=== PATIENT | female | born 1940 | race Native Hawaiian/Other Pacific Islander ===

== ENCOUNTER → 2016-11-27 | Outpatient (CLI) | payer MEDICARE, OTHER ==
[~2016-11-27] VITALS: Ht 157.5 cm; Wt 50.5 kg
[~2016-11-27] MED LIST: ASPI81TA42 PO; ATOR40TA28 PO; METO-558 PO; MONT10TA21 PO; SACU1TAB7 PO; SLOWK8 PO; VITAD1000 PO
[2016-11-27 09:59] VITALS: BP 149/80
== END | disposition home or self-care (01) ==
LOC: SRCNTR 09:26
PROVIDERS: ATTEND Internal Medicine Clinical Cardiac Electrophysiology
DX: Z45.018 Encounter for adjustment and management of other part of cardiac pacemaker (principal)
CPT/HCPCS: 93288; G0463

== ENCOUNTER 2017-01-04 20:56 | Emergency (ER) | payer MEDICARE, OTHER ==
[~2017-01-04] VITALS: Ht 157.5 cm; Wt 51.4 kg
[2017-01-04] MEDS ORDERED: LIDOCAINE HCL 5% TRANSDERMAL PATCH TP ONE (23:15)
[2017-01-04] MEDS ORDERED: HYDROCODONE/ACETAMINOPHEN 5-325 MG TABLET PO ONE (23:15)
[2017-01-04] MEDS ORDERED: ACYCLOVIR 200 MG CAPSULE PO ONE (23:15)
[2017-01-04] MEDS ORDERED: PredniSONE 20 MG TABLET PO ONE (23:15)
[2017-01-04 23:35] VITALS: BP 138/81
== END 2017-01-04 23:44 | disposition home or self-care (01) ==
LOC: EMS 20:57
DX: B02.9 Zoster without complications (principal); I11.9 Hypertensive heart disease without heart failure; E78.00 Pure hypercholesterolemia, unspecified
CPT/HCPCS: 99284; J7512

== ENCOUNTER → 2017-11-26 | Outpatient (CLI) | payer MEDICARE, OTHER ==
[~2017-11-26] VITALS: Ht 157.5 cm; Wt 50.5 kg
[~2017-11-26] MED LIST changes: -ASPI81TA42 PO; -SLOWK8 PO
[2017-11-26 10:30] VITALS: BP 133/70
== END | disposition home or self-care (01) ==
LOC: SRCNTR 10:08
PROVIDERS: ATTEND Internal Medicine Clinical Cardiac Electrophysiology
DX: Z45.02 Encounter for adjustment and management of automatic implantable cardiac defibrillator (principal); E78.00 Pure hypercholesterolemia, unspecified; I10 Essential (primary) hypertension
CPT/HCPCS: G0463

== ENCOUNTER → 2020-06-14 | Outpatient (CLI) | payer MEDICARE, OTHER ==
[~2020-06-14] VITALS: Ht 152.4 cm; Wt 56.7 kg
[~2020-06-14] MED LIST changes: +CHOL100018 PO; +GABA-1216 PO; +MONT-35 PO; -MONT10TA21 PO; +PANT-31 PO; -VITAD1000 PO
[2020-06-14 10:23] VITALS: BP 141/72
== END | disposition home or self-care (01) ==
LOC: SRCNTR 09:36
PROVIDERS: ATTEND Internal Medicine Clinical Cardiac Electrophysiology
DX: Z45.02 Encounter for adjustment and management of automatic implantable cardiac defibrillator (principal)
CPT/HCPCS: 93289; G0463

== ENCOUNTER → 2020-08-10 | Outpatient (CLI) | payer MEDICARE, OTHER | END | disposition home or self-care (01) | LOC: RADPV 09:38 | PROVIDERS: ATTEND Internal Medicine | DX: M81.8 Other osteoporosis without current pathological fracture (principal) | CPT/HCPCS: 77080 ==

== ENCOUNTER → 2021-01-03 | Outpatient (CLI) | payer MEDICARE, OTHER | END | disposition home or self-care (01) | LOC: RADMN 08:10 | PROVIDERS: ATTEND Internal Medicine | DX: I71.4 Abdominal aortic aneurysm, without rupture (principal) | CPT/HCPCS: 76705 ==

== ENCOUNTER 2021-09-04 11:28 | Inpatient (IN) | payer MEDICARE, OTHER ==
[~2021-09-04] VITALS: Ht 167.6 cm; Wt 55.0 kg
[2021-09-04 14:45] LABS: BASOPHILS % (AUTO) 0.8 % (0.0-2.0); EOSINOPHILS % (AUTO) 0.2 % (1.0-6.0); HEMATOCRIT 38.7 % (36-46); LYMPHOCYTES # (AUTO) 2.2 K/uL (1.0-4.8); LYMPHOCYTES % (AUTO) 37.2 % (22.0-44.0); MEAN CORPUSCULAR HEMOGLOBIN 30.2 pg (26.0-34.0); MEAN CORPUSCULAR HGB CONC 33.6 G/dL (31.0-37.0); MEAN CORPUSCULAR VOLUME 90 fL (80-100); MONOCYTES # (AUTO) 0.4 K/uL (0.1-1.0); MONOCYTES % (AUTO) 7.5 % (2.0-9.0); NEUTROPHILS # (AUTO) 3.2 K/uL (1.8-7.7); NEUTROPHILS % (AUTO) 54.3 % (40.0-70.0); PLATELET COUNT (AUTO) 196 K/uL (150-450); RED CELL DISTRIBUTION WIDTH 14.3 % (11.5-14.5)
[2021-09-04] MEDS ORDERED: CHOL25TA4 PO (14:55)
[2021-09-04] MEDS ORDERED: ALBU8HFA IH (14:57)
[2021-09-04] MEDS ORDERED: METO-408 PO (14:57)
[2021-09-04] MEDS ORDERED: DENO60DI SQ (14:57)
[2021-09-04] MEDS ORDERED: ATOR20TA86 PO (14:57)
[2021-09-04 15:00] LABS: CALCIUM, TOTAL 9.4 mg/dL (8.8-10.5); CREATININE 1.12 mg/dL (0.60-1.30); POTASSIUM 4.4 mmol/L (3.5-5.1)
[2021-09-04] MEDS ORDERED: ONDANSETRON HCL 4 MG/2 ML VIAL IVP ONE (15:00)
[2021-09-04] MEDS ORDERED: SODIUM CHLORIDE 0.9% 1,000 ML IV ONE (15:00)
[2021-09-04] MEDS ORDERED: MAG HYDROX/AL HYDROX/SIMETH 30 ML SUSP UDCUP PO ONE (15:00)
[2021-09-04] MEDS ORDERED: FAMOTIDINE 10 MG/ML 2 ML VIAL IVP ONE (15:00)
[2021-09-04 15:07] LABS: ALBUMIN 3.7 g/dL (3.4-5.0); MAGNESIUM 2.5 mg/dL (1.80-2.40); TOTAL PROTEIN, SERUM 6.9 g/dL (6.4-8.2)
[2021-09-04 15:57] LABS: LACTIC ACID 2.3 mmol/L (0.4-2.0)
[2021-09-04] MEDS ORDERED: SODIUM CHLORIDE 0.9% 100 ML ONE (16:33)
[2021-09-04] MEDS ORDERED: IOHEXOL 350 MG/ML 100 ML VIAL ONE (16:33)
[2021-09-04 16:37] LABS: COVID AG,FIA SOURCE NASOPHARYNGEAL
[2021-09-04] MEDS ORDERED: ACETAMINOPHEN 325 MG TABLET PO PRN (19:15)
[2021-09-04] MEDS ORDERED: ONDANSETRON HCL 4 MG/2 ML VIAL IVP PRN (19:15)
[2021-09-04 21:00] VITALS: BP 128/63
[2021-09-04] MEDS: GABAPENTIN 100 MG CAPSULE PO SCH (22:21)
[2021-09-04 23:35] VITALS: BP 122/56
[2021-09-05] MEDS: HEPARIN SODIUM,PORCINE 5,000 UNITS/ML VIAL SQ SCH ×4 (00:32→23:22)
[2021-09-05 04:10] VITALS: BP 121/61
[2021-09-05 07:07] VITALS: BP 131/50
[2021-09-05 07:14] VITALS: BP 120/64
[2021-09-05] MEDS: PANTOPRAZOLE SODIUM 40 MG DR TABLET PO SCH (08:43)
[2021-09-05] MEDS: GABAPENTIN 100 MG CAPSULE PO SCH ×3 (08:43→21:38)
[2021-09-05] MEDS: MONTELUKAST SODIUM 10 MG TABLET PO SCH (08:43)
[2021-09-05] MEDS: METOPROLOL SUCCINATE 25 MG ER TABLET PO SCH (08:44)
[2021-09-05] MEDS: CHOLECALCIFEROL (VIT D3) 1,000 UNITS [25 MCG] TABLET PO SCH (08:44)
[2021-09-05 10:48] VITALS: BP 118/64
[2021-09-05] MEDS: MetroNIDAZOLE 500 MG TABLET PO SCH ×2 (16:22→23:22)
[2021-09-05] MEDS: LACTOBACILLUS ACIDOPHILUS/BULGARICUS GRANULES PACKET PO SCH ×2 (16:22→23:22)
[2021-09-05 16:38] VITALS: BP 122/66
[2021-09-05 21:10] VITALS: BP 118/66
[2021-09-06] VITALS (7 sets, daily range): BP systolic 102–136; BP diastolic 56–68
[2021-09-06] MEDS: GABAPENTIN 100 MG CAPSULE PO SCH ×3 (08:42→21:08)
[2021-09-06] MEDS: CHOLECALCIFEROL (VIT D3) 1,000 UNITS [25 MCG] TABLET PO SCH (08:42)
[2021-09-06] MEDS: ATORVASTATIN CALCIUM 20 MG TABLET PO SCH ×2 (08:43→10:41)
[2021-09-06] MEDS: LACTOBACILLUS ACIDOPHILUS/BULGARICUS GRANULES PACKET PO SCH ×3 (08:43→23:37)
[2021-09-06] MEDS: PANTOPRAZOLE SODIUM 40 MG DR TABLET PO SCH (08:43)
[2021-09-06] MEDS: MONTELUKAST SODIUM 10 MG TABLET PO SCH (08:43)
[2021-09-06] MEDS: METOPROLOL SUCCINATE 25 MG ER TABLET PO SCH (08:43)
[2021-09-06] MEDS: HEPARIN SODIUM,PORCINE 5,000 UNITS/ML VIAL SQ SCH ×3 (08:44→23:36)
[2021-09-06] MEDS: MetroNIDAZOLE 500 MG TABLET PO SCH ×3 (08:58→23:36)
[2021-09-06 09:11] LABS: CALCIUM, TOTAL 9.1 mg/dL (8.8-10.5); CREATININE 1.47 mg/dL (0.60-1.30); POTASSIUM 4.2 mmol/L (3.5-5.1)
[2021-09-06 10:21] LABS: C.DIFF GDH ANTIGEN, Stool Negative (Negative); C.DIFF TOXINS A&B, Stool Negative (Negative)
[2021-09-07 05:26] VITALS: BP 119/64
[2021-09-07 06:49] LABS: BASOPHILS % (AUTO) 1.1 % (0.0-2.0); EOSINOPHILS % (AUTO) 0.8 % (1.0-6.0); HEMATOCRIT 34.7 % (36-46); HEMOGLOBIN 11.8 g/dL (12.0-16.0); LYMPHOCYTES # (AUTO) 1.5 K/uL (1.0-4.8); LYMPHOCYTES % (AUTO) 27.2 % (22.0-44.0); MEAN CORPUSCULAR HEMOGLOBIN 30.6 pg (26.0-34.0); MEAN CORPUSCULAR HGB CONC 34.1 G/dL (31.0-37.0); MEAN CORPUSCULAR VOLUME 90 fL (80-100); MONOCYTES # (AUTO) 0.5 K/uL (0.1-1.0); MONOCYTES % (AUTO) 8.9 % (2.0-9.0); NEUTROPHILS # (AUTO) 3.4 K/uL (1.8-7.7); PLATELET COUNT (AUTO) 173 K/uL (150-450); RED BLOOD CELL COUNT(AUTO) 3.87 MIL/uL (4.00-5.20); RED CELL DISTRIBUTION WIDTH 14.3 % (11.5-14.5)
[2021-09-07 07:28] LABS: ALBUMIN 3.2 g/dL (3.4-5.0); BILIRUBIN,TOTAL 0.8 mg/dL (0.1-1.0); CALCIUM, TOTAL 9.1 mg/dL (8.8-10.5); CREATININE 1.21 mg/dL (0.60-1.30)
[2021-09-07 08:00] VITALS: BP 97/55
[2021-09-07] MEDS: GABAPENTIN 100 MG CAPSULE PO SCH ×3 (08:16→21:00)
[2021-09-07] MEDS: MetroNIDAZOLE 500 MG TABLET PO SCH ×2 (08:16→16:06)
[2021-09-07] MEDS: CHOLECALCIFEROL (VIT D3) 1,000 UNITS [25 MCG] TABLET PO SCH (08:16)
[2021-09-07] MEDS: MONTELUKAST SODIUM 10 MG TABLET PO SCH (08:16)
[2021-09-07] MEDS: LACTOBACILLUS ACIDOPHILUS/BULGARICUS GRANULES PACKET PO SCH ×2 (08:16→16:06)
[2021-09-07] MEDS: PANTOPRAZOLE SODIUM 40 MG DR TABLET PO SCH (08:16)
[2021-09-07] MEDS: METOPROLOL SUCCINATE 25 MG ER TABLET PO SCH (08:16)
[2021-09-07] MEDS: HEPARIN SODIUM,PORCINE 5,000 UNITS/ML VIAL SQ SCH ×2 (08:17→16:00)
[2021-09-07 13:46] VITALS: BP 122/66
[2021-09-07 16:14] VITALS: BP 11/63
[2021-09-07] MEDS: ATORVASTATIN CALCIUM 20 MG TABLET PO SCH (18:20)
[2021-09-07 20:05] VITALS: BP 109/61
[2021-09-08 00:37] VITALS: BP 123/69
[2021-09-08] MEDS: LACTOBACILLUS ACIDOPHILUS/BULGARICUS GRANULES PACKET PO SCH ×3 (00:41→15:12)
[2021-09-08] MEDS: MetroNIDAZOLE 500 MG TABLET PO SCH ×3 (00:41→15:12)
[2021-09-08] MEDS: HEPARIN SODIUM,PORCINE 5,000 UNITS/ML VIAL SQ SCH ×3 (00:41→15:12)
[2021-09-08 04:54] VITALS: BP 119/60
[2021-09-08 06:43] LABS: BASOPHILS % (AUTO) 0.9 % (0.0-2.0); EOSINOPHILS % (AUTO) 1.6 % (1.0-6.0); HEMATOCRIT 34.6 % (36-46); HEMOGLOBIN 11.8 g/dL (12.0-16.0); LYMPHOCYTES # (AUTO) 2.2 K/uL (1.0-4.8); LYMPHOCYTES % (AUTO) 41.1 % (22.0-44.0); MEAN CORPUSCULAR HEMOGLOBIN 30.8 pg (26.0-34.0); MEAN CORPUSCULAR HGB CONC 34.2 G/dL (31.0-37.0); MEAN CORPUSCULAR VOLUME 90 fL (80-100); MONOCYTES # (AUTO) 0.5 K/uL (0.1-1.0); MONOCYTES % (AUTO) 10.3 % (2.0-9.0); NEUTROPHILS # (AUTO) 2.4 K/uL (1.8-7.7); NEUTROPHILS % (AUTO) 46.1 % (40.0-70.0); PLATELET COUNT (AUTO) 179 K/uL (150-450); RED BLOOD CELL COUNT(AUTO) 3.84 MIL/uL (4.00-5.20); RED CELL DISTRIBUTION WIDTH 14.7 % (11.5-14.5)
[2021-09-08 07:01] LABS: BILIRUBIN,TOTAL 0.7 mg/dL (0.1-1.0); CALCIUM, TOTAL 9.1 mg/dL (8.8-10.5); CREATININE 1.3 mg/dL (0.60-1.30); POTASSIUM 3.9 mmol/L (3.5-5.1); TOTAL PROTEIN, SERUM 5.7 g/dL (6.4-8.2)
[2021-09-08 07:16] VITALS: BP 113/59
[2021-09-08] MEDS: CHOLECALCIFEROL (VIT D3) 1,000 UNITS [25 MCG] TABLET PO SCH (09:12)
[2021-09-08] MEDS: METOPROLOL SUCCINATE 25 MG ER TABLET PO SCH (09:12)
[2021-09-08] MEDS: PANTOPRAZOLE SODIUM 40 MG DR TABLET PO SCH (09:12)
[2021-09-08] MEDS: ATORVASTATIN CALCIUM 20 MG TABLET PO SCH (09:12)
[2021-09-08] MEDS: GABAPENTIN 100 MG CAPSULE PO SCH ×3 (09:13→20:51)
[2021-09-08] MEDS: MONTELUKAST SODIUM 10 MG TABLET PO SCH (09:13)
[2021-09-08 11:48] VITALS: BP 94/59
[2021-09-08] MEDS: FUROSEMIDE 20 MG/2 ML VIAL IVP SCH (14:38)
[2021-09-08 15:10] VITALS: BP 110/53
[2021-09-08 19:10] VITALS: BP 117/84
[2021-09-08] MEDS: SACUBITRIL/VALSARTAN 24-26 MG TABLET PO SCH (20:51)
[2021-09-09 00:20] VITALS: BP 112/57
[2021-09-09] MEDS: HEPARIN SODIUM,PORCINE 5,000 UNITS/ML VIAL SQ SCH ×3 (00:51→15:48)
[2021-09-09] MEDS: MetroNIDAZOLE 500 MG TABLET PO SCH ×3 (00:51→15:48)
[2021-09-09] MEDS: LACTOBACILLUS ACIDOPHILUS/BULGARICUS GRANULES PACKET PO SCH ×3 (00:52→15:48)
[2021-09-09 04:35] VITALS: BP 111/57
[2021-09-09 06:47] LABS: CALCIUM, TOTAL 9.6 mg/dL (8.8-10.5); CREATININE 1.24 mg/dL (0.60-1.30); POTASSIUM 3.8 mmol/L (3.5-5.1)
[2021-09-09 08:07] VITALS: BP 120/61
[2021-09-09] MEDS: PANTOPRAZOLE SODIUM 40 MG DR TABLET PO SCH (08:51)
[2021-09-09] MEDS: MONTELUKAST SODIUM 10 MG TABLET PO SCH (08:51)
[2021-09-09] MEDS: SACUBITRIL/VALSARTAN 24-26 MG TABLET PO SCH ×2 (08:51→20:56)
[2021-09-09] MEDS: CHOLECALCIFEROL (VIT D3) 1,000 UNITS [25 MCG] TABLET PO SCH (08:51)
[2021-09-09] MEDS: ATORVASTATIN CALCIUM 20 MG TABLET PO SCH (08:52)
[2021-09-09] MEDS: FUROSEMIDE 20 MG/2 ML VIAL IVP SCH (08:52)
[2021-09-09] MEDS: METOPROLOL SUCCINATE 25 MG ER TABLET PO SCH (08:52)
[2021-09-09] MEDS: GABAPENTIN 100 MG CAPSULE PO SCH ×3 (08:52→20:54)
[2021-09-09] MEDS: SPIRONOLACTONE 25 MG TABLET PO SCH (09:46)
[2021-09-09 11:20] VITALS: BP 103/51
[2021-09-09 15:26] VITALS: BP 106/52
[2021-09-09 20:33] VITALS: BP 96/55
[2021-09-10 00:24] VITALS: BP 106/53
[2021-09-10] MEDS: LACTOBACILLUS ACIDOPHILUS/BULGARICUS GRANULES PACKET PO SCH ×3 (00:26→17:58)
[2021-09-10] MEDS: HEPARIN SODIUM,PORCINE 5,000 UNITS/ML VIAL SQ SCH ×4 (00:26→22:34)
[2021-09-10] MEDS: MetroNIDAZOLE 500 MG TABLET PO SCH ×3 (00:26→17:53)
[2021-09-10 04:20] VITALS: BP 103/56
[2021-09-10 07:03] LABS: EOSINOPHILS % (AUTO) 3.7 % (1.0-6.0); HEMATOCRIT 37.5 % (36-46); HEMOGLOBIN 12.5 g/dL (12.0-16.0); LYMPHOCYTES # (AUTO) 1.7 K/uL (1.0-4.8); LYMPHOCYTES % (AUTO) 30.3 % (22.0-44.0); MEAN CORPUSCULAR HEMOGLOBIN 30.2 pg (26.0-34.0); MEAN CORPUSCULAR HGB CONC 33.2 G/dL (31.0-37.0); MEAN CORPUSCULAR VOLUME 91 fL (80-100); MONOCYTES # (AUTO) 0.5 K/uL (0.1-1.0); MONOCYTES % (AUTO) 9.2 % (2.0-9.0); NEUTROPHILS # (AUTO) 3.1 K/uL (1.8-7.7); NEUTROPHILS % (AUTO) 55.8 % (40.0-70.0); PLATELET COUNT (AUTO) 200 K/uL (150-450); RED BLOOD CELL COUNT(AUTO) 4.13 MIL/uL (4.00-5.20); RED CELL DISTRIBUTION WIDTH 15.8 % (11.5-14.5)
[2021-09-10 07:16] LABS: BILIRUBIN,TOTAL 0.6 mg/dL (0.1-1.0); CALCIUM, TOTAL 9.6 mg/dL (8.8-10.5); CREATININE 1.11 mg/dL (0.60-1.30); MAGNESIUM 1.4 mg/dL (1.80-2.40); POTASSIUM 3.9 mmol/L (3.5-5.1); TOTAL PROTEIN, SERUM 5.9 g/dL (6.4-8.2)
[2021-09-10 07:19] VITALS: BP 114/53
[2021-09-10] MEDS: CHOLECALCIFEROL (VIT D3) 1,000 UNITS [25 MCG] TABLET PO SCH (09:36)
[2021-09-10] MEDS: GABAPENTIN 100 MG CAPSULE PO SCH ×3 (09:37→22:35)
[2021-09-10] MEDS: ATORVASTATIN CALCIUM 20 MG TABLET PO SCH (09:37)
[2021-09-10] MEDS: METOPROLOL SUCCINATE 25 MG ER TABLET PO SCH (09:37)
[2021-09-10] MEDS: MONTELUKAST SODIUM 10 MG TABLET PO SCH (09:37)
[2021-09-10] MEDS: SPIRONOLACTONE 25 MG TABLET PO SCH (09:39)
[2021-09-10] MEDS: PANTOPRAZOLE SODIUM 40 MG DR TABLET PO SCH (09:41)
[2021-09-10] MEDS: SACUBITRIL/VALSARTAN 24-26 MG TABLET PO SCH ×2 (09:42→22:34)
[2021-09-10] MEDS: FUROSEMIDE 20 MG/2 ML VIAL IVP SCH (09:47)
[2021-09-10 11:39] VITALS: BP 94/48
[2021-09-10 15:11] VITALS: BP 94/51
[2021-09-10 20:12] VITALS: BP 102/52
[2021-09-10] MEDS ORDERED: MAGNESIUM SULFATE 2 GM/WATER 50 ML IV PRN (21:00)
[2021-09-10] MEDS ORDERED: MAGNESIUM SULFATE 4 GM/WATER 100 ML IV PRN (21:00)
[2021-09-10] MEDS ORDERED: MAGNESIUM OXIDE 400 MG TABLET PO PRN (21:00)
[2021-09-10] MEDS ORDERED: SODIUM CHLORIDE 0.9% 250 ML IV ONE (22:32)
[2021-09-11] MEDS: LACTOBACILLUS ACIDOPHILUS/BULGARICUS GRANULES PACKET PO SCH ×2 (00:17→09:56)
[2021-09-11] MEDS: MetroNIDAZOLE 500 MG TABLET PO SCH ×2 (00:17→09:58)
[2021-09-11 01:00] VITALS: BP 108/66
[2021-09-11 01:15] LABS: APPEARANCE,URINE CLEAR (CLEAR); BILIRUBIN,URINE NEGATIVE (NEGATIVE); GLUCOSE, URINE (UA) NEGATIVE (NEGATIVE); KETONES,URINE NEGATIVE (NEGATIVE); LEUKOCYTE ESTERASE ,URINE SMALL (NEGATIVE); NITRATE,URINE NEGATIVE (NEGATIVE); OCCULT BLOOD,URINE NEGATIVE (NEGATIVE); PROTEIN,URINE NEGATIVE (NEGATIVE); SPECIFIC GRAVITIY, URINE 1.015 (1.003-1.030); UROBILINOGEN,URINE <=1.0 mg/dL (<=1.0)
[2021-09-11 01:30] LABS: BACTERIA,URINE None Seen /HPF (None Seen); RBC,URINE None Seen /HPF (0-2)
[2021-09-11 04:43] VITALS: BP 113/62
[2021-09-11 06:38] LABS: BASOPHILS % (AUTO) 1.2 % (0.0-2.0); HEMATOCRIT 40.3 % (36-46); HEMOGLOBIN 13.5 g/dL (12.0-16.0); LYMPHOCYTES # (AUTO) 1.7 K/uL (1.0-4.8); LYMPHOCYTES % (AUTO) 31.4 % (22.0-44.0); MEAN CORPUSCULAR HEMOGLOBIN 30.2 pg (26.0-34.0); MEAN CORPUSCULAR HGB CONC 33.5 G/dL (31.0-37.0); MEAN CORPUSCULAR VOLUME 90 fL (80-100); MONOCYTES # (AUTO) 0.6 K/uL (0.1-1.0); MONOCYTES % (AUTO) 11.2 % (2.0-9.0); NEUTROPHILS # (AUTO) 2.9 K/uL (1.8-7.7); NEUTROPHILS % (AUTO) 53.2 % (40.0-70.0); PLATELET COUNT (AUTO) 217 K/uL (150-450); RED BLOOD CELL COUNT(AUTO) 4.48 MIL/uL (4.00-5.20); RED CELL DISTRIBUTION WIDTH 15.3 % (11.5-14.5)
[2021-09-11 06:57] LABS: ALBUMIN 3.2 g/dL (3.4-5.0); BILIRUBIN,TOTAL 0.6 mg/dL (0.1-1.0); CALCIUM, TOTAL 9.7 mg/dL (8.8-10.5); CREATININE 1.25 mg/dL (0.60-1.30); MAGNESIUM 1.7 mg/dL (1.80-2.40); TOTAL PROTEIN, SERUM 6.5 g/dL (6.4-8.2)
[2021-09-11 07:24] VITALS: BP 108/60
[2021-09-11] MEDS ORDERED: ATORVASTATIN CALCIUM 10 MG TABLET PO SCH (09:00)
[2021-09-11] MEDS: CHOLECALCIFEROL (VIT D3) 1,000 UNITS [25 MCG] TABLET PO SCH (09:58)
[2021-09-11] MEDS: SACUBITRIL/VALSARTAN 24-26 MG TABLET PO SCH (09:58)
[2021-09-11] MEDS: PANTOPRAZOLE SODIUM 40 MG DR TABLET PO SCH (09:58)
[2021-09-11] MEDS: METOPROLOL SUCCINATE 25 MG ER TABLET PO SCH (10:00)
[2021-09-11] MEDS: SPIRONOLACTONE 25 MG TABLET PO SCH (10:00)
[2021-09-11] MEDS: GABAPENTIN 100 MG CAPSULE PO SCH (10:01)
[2021-09-11] MEDS: HEPARIN SODIUM,PORCINE 5,000 UNITS/ML VIAL SQ SCH (10:01)
[2021-09-11] MEDS: MONTELUKAST SODIUM 10 MG TABLET PO SCH (10:01)
[2021-09-11 11:29] VITALS: BP 115/57
[2021-09-11] MEDS ORDERED: SPIR-37 PO (13:17)
[2021-09-11] MEDS ORDERED: FURO-152 PO (13:29)
[2021-09-11] MEDS ORDERED: METR500 PO (13:30)
[2021-09-11] MEDS ORDERED: ATOR10TA84 PO (13:32)
[2021-09-11 15:22] VITALS: BP 120/70
== END 2021-09-11 17:00 | disposition home health service (06) | DRG 391 ==
LOC: EMS 11:28 → 5S 19:09
PROVIDERS: ADMIT Internal Medicine; ATTEND Internal Medicine
DX: A08.4 Viral intestinal infection, unspecified (principal); I50.23 Acute on chronic systolic (congestive) heart failure; E46 Unspecified protein-calorie malnutrition; I42.9 Cardiomyopathy, unspecified; N39.0 Urinary tract infection, site not specified; I11.0 Hypertensive heart disease with heart failure; I25.10 Atherosclerotic heart disease of native coronary artery without angina pectoris; I35.1 Nonrheumatic aortic (valve) insufficiency; M81.0 Age-related osteoporosis without current pathological fracture; E78.5 Hyperlipidemia, unspecified; Z20.822 Contact with and (suspected) exposure to COVID-19; E78.00 Pure hypercholesterolemia, unspecified; K21.9 Gastro-esophageal reflux disease without esophagitis; I44.7 Left bundle-branch block, unspecified; I36.1 Nonrheumatic tricuspid (valve) insufficiency; I34.0 Nonrheumatic mitral (valve) insufficiency; Z95.0 Presence of cardiac pacemaker; Z79.899 Other long term (current) drug therapy
CPT/HCPCS: 71045; 71046; 74177; 76700; 80048; 80053; 81001; 82378; 83605; 83690; 83735; 83880; 84100; 84484; 85025; 86301; 86304; 87324; 87449; 93005; 93306; 97162; 97165; 97530; 97535; 99285; J1644; J1940; J2405; J3475; J3490; J7030; J7050; Q9967; 36415-L1; 36415-TC

== ENCOUNTER → 2022-01-17 | Outpatient (CLI) | payer MEDICARE, OTHER ==
[~2022-01-17] MED LIST changes: +ALBU8HFA IH; +ATOR10TA PO; -ATOR40TA28 PO; -CHOL100018 PO; +CHOL25TA4 PO; +DENO60DI SQ; +FURO-152 PO; +METO-408 PO; -METO-558 PO; +METR500 PO; +SPIR-37 PO
== END | disposition home or self-care (01) ==
LOC: RADPV 08:33
PROVIDERS: ATTEND Internal Medicine
DX: I71.40 Abdominal aortic aneurysm, without rupture, unspecified (principal)
CPT/HCPCS: 76700